=== PATIENT | male | born 1995 | race African-American/Black ===

== ENCOUNTER 2024-05-02 08:52 | Emergency (ER) | payer MEDICAID ==
[~2024-05-02] VITALS: Ht 185.4 cm; Wt 120.0 kg
[2024-05-02 08:58] VITALS: O2SAT 99
[2024-05-02 09:58] VITALS: BP 158/86
[2024-05-02] MEDS: ACETAMINOPHEN 325MG TABLET PO NR (09:58)
[2024-05-02] MEDS: IBUPROFEN 400MG TABLET PO NR (09:58)
[2024-05-02 14:51] VITALS: PULSE 75; RESP 16; TEMP 36.72516; O2SAT 100
== END 2024-05-02 14:54 | disposition home or self-care (01) ==
LOC: ER 08:52
DX: M25.561 Pain in right knee (principal)
CPT/HCPCS: 73562; 73700; 99284; Z7610; L1830